=== PATIENT | female | born 1980 | race Caucasian/White ===

== ENCOUNTER → 2016-11-30 | Outpatient (CLI) | payer BC ==
[~2016-11-30] MED LIST: CALC-51 PO; IBUP-1050 PO; THY/30 PO; vitamin d PO
--- NOTE | 2016-11-30 16:30 | MAMMOGRAPHY REPORT ---
BILATERAL DIGITAL SCREENING MAMMOGRAM TOMOSYNTHESIS WITH CAD: 11/30/2016 CLINICAL HISTORY: Routine screening. Patient has no complaints. TECHNIQUE: Breast tomosynthesis in addition to standard 2D mammography was performed. Current study was also evaluated with a Computer Aided Detection (CAD) system. COMPARISON: Comparison is made to exam dated: 09/22/2015 mammogram - [facility]. BREAST COMPOSITION: The tissue of both breasts is heterogeneously dense, which may obscure small ma sses. FINDINGS: No suspicious masses, calcifications, or areas of architectural distortion are noted in e ither breast. There has been no significant interval change compared to prior exams. IMPRESSION: ACR BI-RADS CATEGORY 1: NEGATIVE There is no mammographic evidence of malignancy. A 1 year screening mammogram is recommended. The p atient will receive written notification of the results. Approximately 10% of breast cancers are not detected with mammography. A negative mammographic repor t should not delay biopsy if a clinically suggestive mass is present. Moon Perez M.D. ah/:11/30/2016 14:59:38 Coordinator Of Health Services: Noreen VAZQUEZ(Sahra)(Chandan)([place]), [facility] letter sent: Normal 1/2 BI-RADS Code: ACR BI-RADS Category 1: Negative
== END | disposition home or self-care (01) ==
LOC: C.MAMM 14:39
PROVIDERS: ATTEND Obstetrics & Gynecology
DX: Z12.31 Encounter for screening mammogram for malignant neoplasm of breast (principal)

== ENCOUNTER → 2016-12-12 | Outpatient (CLI) | payer BC ==
[2016-12-12 09:49] LABS: CALCULATED INSULIN SENSITIVITY 0.384; GLUCOSE LOG 1.9685; INSULIN FASTING 4.3 mU/L (3-25); INSULIN LOG 0.6335
== END | disposition home or self-care (01) ==
LOC: C.LAB1850 08:05
PROVIDERS: ATTEND Obstetrics & Gynecology
DX: R63.5 Abnormal weight gain (principal)

== ENCOUNTER → 2016-12-18 | Day surgery (SDC) | payer BC ==
--- NOTE | 2016-12-12 09:09 | PAT Medication Instructions ---
Service Date December 12, 2016. Current Home Medication List Ibuprofen (Advil), 800 MG PO PRN Thyroid ([place] Thyroid), 1 TAB PO QAM Medication Instructions For Your Scheduled Surgery - Check with surgeon for surgeon for instructions; Ibuprofen (Advil), 800 MG PO PRN - Take the following medications the morning of surgery with a sip of water: Thyroid ([place] Thyroid), 1 TAB PO QAM If you have any questions please call us at [phone] or [phone] or [phone]
[2016-12-12 09:33] LABS: BASO % 0.1 %; BASO ABS # 0.01 K/uL (0-0.2); COMPLETE YES; EOS % 1.6 %; HEMATOCRIT 39.6 % (37-47); IG% 0.1 %; LYMPH % 29.5 %; LYMPH ABS # 2.18 K/uL (1.2-3.4); MEAN CELL VOLUME 92.3 fL (80-100); MEAN CORPUSCULAR HGB CONC 33.6 g/dl (32-36); MEAN PLATELET VOLUME 9.9 fL (7.4-10.4); NEUT % 61.7 %; PLATELET COUNT 228 K/uL (130-400); RED BLOOD COUNT 4.29 M/uL (4.2-5.4)
[2016-12-12 09:54] LABS: INR 0.9 (0.9-1.1); PARTIAL THROMBOPLASTIN RATIO 1.2; PROTHROMBIN TIME (PATIENT) 9.9 SECONDS (9.0-12.0)
--- NOTE | 2016-12-17 11:11 | HISTORY & PHYSICAL EXAMINATION ---
DATE OF ADMISSION: 12/18/2016 HISTORY OF PRESENT ILLNESS: A 36-year-old female who presents for preop evaluation, requesting surgery due to pain located in the right foot over the lateral aspect of her foot and for correction of a shortened toe. She describes sharp stabbing tenderness graded as an 8 or 9 on a 10 point scale at its worst. She has had daily pain graded as a 5 or 6 although, notes it increases during periods of activity. The pain first started a year ago. 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 However, pain over the fifth metatarsal just started within the past year. She notes the severity of the condition is gradually worsening over time. Associated signs and symptoms she notes pressure when ambulating in certain shoes. Previous treatment has included accommodative shoes, nonsteroidals, accommodative padding, insoles. She has also been seen as a child at [facility] for the shortening deformity, upper fourth toe. Due to cosmetic reasons and increasing pain she is requesting surgical intervention at this time. PAST SURGICAL HISTORY: Tubal ligation in 2001, lithotripsy in 2008 and 2007. PAST MEDICAL HISTORY: Unremarkable. MEDICATIONS: Clinoril, Percocet, Keflex. ALLERGIES: LATEX. FAMILY HISTORY: Unremarkable. SOCIAL HISTORY: The patient admits to alcohol use. She is currently not smoking. Relates a smoking history of 15 pack years, quit 9 months ago. REVIEW OF SYSTEMS: Unremarkable except chief complaint. PHYSICAL EXAMINATION: CONSTITUTIONAL: The patient appears well-developed and nourished with good attention to body grooming and habitus. HEAD AND FACE: Head is normocephalic and atraumatic without any gross head, face, or neck masses. EYES: Conjunctival and pupillary reaction to light and accommodation normal. EARS, NOSE, MOUTH, AND THROAT: Unremarkable. NECK: Neck is supple. Trachea is midline. CARDIOVASCULAR: Normal S1, S2 without murmur, gallops, rubs, or clicks noted. RESPIRATORY: Chest is symmetric. No scars are visible. No port or pacemaker is noted. GASTROINTESTINAL: Abdominal organs, bladder, and kidneys show no abnormalities, masses, tenderness, or rigidity. LOWER EXTREMITIES: DP palpable. PT palpable. DERMATOLOGIC: No skin rash, subcutaneous nodules, lesions, or ulcers observed. NEUROLOGICAL: Touch, pin, vibratory pain, proprioception sensations are normal. Epicritic sensations intact. Deep tendon reflexes normal. MUSCULOSKELETAL: Muscle tone is normal. Muscle strength 5/5 all groups tested. Inspection and palpation of bones, joints, muscles shows first metatarsophalangeal joint, enlarged dorsal medial eminence. Range of motion is track bound and range of motion is limited secondary to swelling on the left, enlarged dorsal lateral prominence right fifth MTPJ. PIPJ contracture now with retrograde buckling across the metatarsophalangeal joint, brachymetatarsia is noted with shortening of the fourth toe, tenderness on palpation fifth MTPJ. Gait analysis shows excessive pronation. IMPRESSION: 1. Hallux abductovalgus deformity. 2. Hammertoe. 3. Brachymetatarsia. 4. Tailor's bunion. 5. Difficulty walking. 6. Pain in lower extremities. 7. Collapsing calcaneal valgus foot type. PLAN: I discussed mechanical and congenital etiology of the patient's deformity. Conservative treatment consisting of: 1. Extra depth shoes, accommodative padding, palliative debridement, steroid injection, nonsteroidals, orthotics. Due to pain over the fifth MTPJ she is requesting surgical correction of the Tailor's bunion. 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 Surgical procedures to be performed: 1. Metatarsal osteotomy with exostectomy, right fifth MTPJ. 2. Osteotomy, right fourth metatarsal. 3. Application of external bone fixator right foot for the purpose of lengthening metatarsal. 4. PIPJ arthroplasty with pinning right fourth. 5. Capsulotomy, right fourth and fifth MTPJ. This will be performed under general anesthesia as an outpatient at the hospital. The procedure, risks and complications were fully reviewed with the patient. Consent form and foot diagram and illustration reviewed in all their entirety. All the patient's questions were answered. Complications were discussed in detail with the patient including pain, infection, swelling that may or may not be excessive, pins and needles feeling, numbness, metatarsalgia, excessive bleeding, delay or nonhealing bone, delay or nonhealing of skin, enlarged scar, failure of the procedure, recurrence or worsening of condition which may or may not require further surgery, adverse reaction to anesthesia, allergic reaction to suture or other implant material, loss of toe, foot, or leg, flail toe, stiff toe, short toe, elevated toe, transfer lesion or callus, peripheral neurovascular complications such as phlebitis, damage to nerves or vascular structures, severe or chronic pain, chronic nerve pain or damage, and general medical complications. The patient will be required to be in a surgery shoe for a minimum of 6-8 weeks and not return to dress shoe for 10-12 weeks depending on the postop edema. The patient is aware this is an elective type procedure and I recommended a second opinion. The patient stated they understood. Consent form was signed with a copy of the foot diagram issued to the patient. Verbal and written postop instructions were given. The patient will be required to be in a surgery shoe for a minimum of 6-8 weeks and not return to dress shoe for 10-12 weeks depending on the postop edema. The patient will return to the office for postop check or sooner if medically necessary. Instructed to keep dressing clean, dry and intact until seen at the office. At time of the preoperative appointment, prescriptions for Percocet and Keflex were dispensed.
[~2016-12-18] VITALS: Ht 157.5 cm; Wt 74.6 kg
[~2016-12-18] MED LIST changes: +ATROPINE SULFATE 0.1 MG/ML 5ML SYR IV PRN; +BUPIVACAINE 0.5 % 5 MG/1 ML MPF 30ML VIAL ONE; +BUPIVACAINE 0.5 % 5 MG/1 ML PF 10ML VIAL ONE; +CEFAZOLIN 1000MG/55 ML D5W IV SCH; +CEFAZOLIN SOD 1 GM VIAL ONE; +DEXAMETHASONE SOD INJ 4 MG/ML VIAL ONE; +DiphenhydrAMINE HCL 50 MG/ML VIAL ONE; +FENTANYL CITRATE INJ 50 MCG/1 ML 2 ML VIAL ONE; +HYDROmorphone INJ 2 MG/ML SYR/VIAL IV PRN; +KETOROLAC TROMETHAMINE 30 MG/ML VIAL IV. PRN; +LACTATED RINGER'S 1000ML 1,000 ML IV SCH; +LIDOCAINE HCL 2% 2 ML VIAL (20MG/ML) ONE; +MIDAZOLAM HCL 1 MG/ML 2ML VIAL ONE; +ONDANSETRON INJ 2 MG/ML 2 ML VIAL IV PRN; +ONDANSETRON INJ 2 MG/ML 2 ML VIAL ONE; +PROMETHAZINE HCL INJ 6.25 MG in SODIUM CHLORIDE 0.9% 50ML 50 ML IV PRN; +PROPOFOL IV EMULSION 10 MG/ML 20 ML VIAL IV ONE; +SODIUM CHLORIDE 0.9% 1000ML 1,000 ML IV SCH
[2016-12-18 05:53] VITALS: BP 113/65; PULSE 72; TEMP 36.7; O2SAT 97; Ht 157.5 cm; Wt 74.6 kg
--- NOTE | 2016-12-18 07:08 | History & Physical Bridge - SC ---
H&P Re-Evaluation Bridge Note: I have examined the patient, reviewed the History & Physical and in the interval since the performance of the History & Physical I have noted the following changes of clinical significance: No changes noted
--- NOTE | 2016-12-18 07:11 | Discharge Instructions ---
Discharge Instructions Date of Service Dec 18, 2016. Visit Reason for Visit: Brachymetatarsal Right 4th Tailors Bunion Discharge Discharge Diagnosis / Problem: same as above Discharge Goals Goal(s): Decrease discomfort Activity Recommendations Activity Limitations: as noted below Medications: * Resume previous medications unless instructed by your surgeon. * Take your medications as prescribed. Call our office ([phone]) at any time, if you experience severe pain that does not subside shortly after taking your pain medication. Activity: * Do not put any standing weight on your operated foot/ankle. Use the crutches or walker as instructed. Special Care: * Keep your bandage clean and dry. Do not remove your bandage unless otherwise instructed. A small amount of blood may appear on the bandage over the surgical site. Call our office ([phone]) if you bandage becomes blood-soaked or wet. * Elevate your operated foot/ankle on pillows, above the level of your heart, as often as possible during the first 2-3 days following surgery. Keep your knee flexed slightly with a pillow under your knee when you elevate your foot/ankle. * Apply a ice bag to your foot/ankle over the operative site for 20-30 minutes out of each hour while you are awake. Do not allow the ice bag to directly contact bare skin. * Avoid bumping or handling any pins visible in your toes. If any pin feels or appears loose, call the office ([phone]). * Take your oral temperature in the morning and at bedtime. Call our office ([phone]) if your temperature rises above 101 degrees Fahrenheit. Call your surgeon's office at ([phone]) for any problems or concerns such as excessive bleeding and/or pain unrelieved by your prescribed pain medications. If you have any questions, please do not hesitate to ask them. Avoid all tobacco products. If you need help to stop smoking, call [place]'s FREE QUITLINE at . This is a free call. Follow-up: Follow-up with Dr. Roque Anesthesia . Post Anesthesia Instructions: If you have had General Anesthesia or IV Sedation: * Do not drive today. * Resume driving when surgeon permits. * Do not make important decisions or sign legal documents today. * Call surgeon for: 1. Temperature elevations greater than 101 degrees F. 2. Uncontrollable pain. 3. Excessive bleeding. 4. Persistent nausea and vomiting. 5. Medication intolerance (nausea, vomiting or rash). * For nausea and vomiting use only clear liquids such as: tea, soda, bouillon until nausea subsides, then gradually increase diet as tolerated. * If you have any concerns or questions, call your surgeon's office. If physician is unavailable and it is an emergency, call 911 or go to the nearest emergency room. . Diet Recommendations Recommended Home Diet: resume previous diet Pending Studies Studies pending at discharge: no Medical Emergencies . Who to Call and When: Medical Emergencies: If at any time you feel your situation is an emergency, please call 911 immediately. . Non-Emergent Contact Non-Emergency issues call your: Primary Care Provider . . "Provider Documentation" section prepared by Michell Durán. .
--- NOTE | 2016-12-18 10:45 | DIAGNOSTIC IMAGING REPORT ---
INTRAOPERATIVE RIGHT FOOT 3 VIEWS CLINICAL HISTORY: Right fourth metatarsal osteotomy COMPARISON STUDY: No previous studies for comparison. FINDINGS: 3 intraoperative fluoroscopic spot images are provided for interpretation. 69 seconds of fluoroscopic time was utilized. There is a short fourth metatarsal. There is an orthopedic pin traversing the interphalangeal joints of the fourth digit as well as the fourth metatarsal phalangeal joint. There are 2 pins within the distal fourth metatarsal, 2 pins within the proximal fourth metatarsal. There are 2 screws within the distal fifth metatarsal. IMPRESSION: Intraoperative radiographs with postsurgical changes as described above. Electronically signed by: Nilson Rawls M.D. 12/18/2016 10:44 AM Dictated Date/Time: 12/18/2016 10:42 AM
--- NOTE | 2016-12-18 11:49 | OPERATIVE REPORT ---
DATE OF OPERATION: 12/18/2016 PREOPERATIVE DIAGNOSES: 1. Brachial metatarsal tear, right fourth. 2. Hammertoes, right fourth. 3. Tailor's bunion, right fifth. POSTOPERATIVE DIAGNOSES: Same. PROCEDURES: 1. Exostectomy with osteotomy, right fifth metatarsal. 2. PIPJ arthroplasty with capsulotomy, right fourth. 3. Capsulotomy, right fifth MTPJ. 4. Metatarsal osteotomy, right fourth. 5. ZY-plasty lengthening skin plasty. 6. Z-plasty lengthening extensor hallucis longus. 7. External fixator application for lengthening right fourth metatarsal unilateral multiplanar. SURGEON: Dr. Roque. PANTS BUSHELER: None. ANESTHESIA: General with regional field block. HEMOSTASIS: Pneumatic calf tourniquet inflated to a level of 300 mmHg for a total tourniquet time 120 minutes, deflated for 20 minutes and reinflated for 30 minutes. ESTIMATED BLOOD LOSS: 10 mL. MATERIALS: 1.5 screws x2 from modular handset measuring 10 mm and 12 mm, mini fixator from [employer] 2.0 threaded K-wires x4, 2-0, 3-0 Vicryl, 4-0 nylon, 0 Ethibond. COMPLICATIONS: None. CONDITION: The patient tolerated the procedure and anesthesia well without complications, transferred to recovery room with vital signs stable and neurovascular status intact. OPERATION AND FINDINGS: PROCEDURE: The patient was brought to the OR and placed on the OR table in supine position. Upon completion of general anesthesia regional field block the right extremity was scrubbed, prepped and draped in the usual aseptic fashion. A well-padded calf tourniquet was applied to the right lower extremity. The extremity was scrubbed, prepped and draped in the usual aseptic fashion. Attention was directed to the right fifth MTPJ where a linear incision was made over the joint with care to preserve all neurovascular structures. Dissection was carried down to the level of the capsular structures. A linear capsulotomy was created which revealed an enlarged dorsal lateral prominence of bone along the fifth metatarsal head. This was removed using a sagittal saw. A guidewire was placed over the neck of the fifth metatarsal in order to slightly plantarflex the metatarsal head. The osteotomy cuts in reverse Corky fashion were made from dorsal medial to plantar proximal lateral. Capital fragment was transposed in a medial direction and temporarily fixated with 1.3 K-wires, 2 screws from the modular handset were placed in lag fashion across the osteotomy site parallel to each other. Intraoperative positioning was checked using C-arm. Attention was then directed to the 4th digit. ZY-plasty was made over the base of the fourth digit to lengthen soft tissue contracture over this area. Capsulotomy was performed over the fourth with release of the metatarsophalangeal joint contracture. Proximal interphalangeal joint was released. A 0.045 K-wire was retrograded through the toe to hold this in position. Attention was then directed to the fourth metatarsal where 4 guided threaded wires were placed, 2 proximal, 2 distal in the fourth metatarsal. An oblique osteotomy was created after application of the external fixator then tightened. This was distracted approximately 3 mm and left in place. Pneumatic ankle tourniquet was released with normal hyperemic ely to digits 1 through 5. Closure began of the skin margins, deep 2.0, subq 3.0 vicral and 4.0 nylon over the skin. Dry sterile compressive dressing consisting of Betadine over the pin sites, 4 x 4's, Adaptic, ABDs, Kerlix and a well-padded BK splint. The patient was transported to recovery room with vital signs stable and neurovascular status intact. I attest to the content of the Intraoperative Record and any orders documented therein. Any exceptions are noted below. DILEEPD
[2016-12-18 12:25] VITALS: BP 107/65; PULSE 75; TEMP 36.9; O2SAT 100
--- NOTE | 2016-12-18 12:36 | DIAGNOSTIC IMAGING REPORT ---
RIGHT FOOT MIN 3 VIEWS ROUTINE CLINICAL HISTORY: postop Right COMPARISON: None. DISCUSSION: Anatomically short fourth metatarsal. Linear pin traversing the phalanges of the fourth toe. Pin fixation of the fourth metatarsal with an external fixator. Findings of a distal fifth metatarsal osteotomy. Expected soft tissue postoperative change IMPRESSION: Postoperative changes to the fourth and to lesser extent fifth metatarsophalangeal complex with alignment considered anatomic. Electronically signed by: Zeke Ngo M.D. 12/18/2016 12:35 PM Dictated Date/Time: 12/18/2016 12:33 PM
--- NOTE | 2016-12-18 12:37 | Anesthesiology Progress Note ---
Anesthesia Post Op Note Date & Time Dec 18, 2016 at 12:37 Vital Signs Pain Intensity: 0 Vital Signs Past 12 Hours Date Time Temp Pulse Resp B/P (MAP) Pulse Ox O2 Delivery O2 Flow Rate FiO2 12/18/16 12:15 60 18 109/76 97 Room Air 12/18/16 12:05 36.5 80 16 111/76 97 Room Air 12/18/16 11:55 67 12 134/87 97 Room Air 12/18/16 11:45 68 18 114/71 95 Room Air 12/18/16 11:35 72 20 117/71 96 Room Air 12/18/16 11:25 70 23 122/72 100 Mask 10 12/18/16 11:15 70 18 121/72 100 Mask 10 12/18/16 11:07 36.7 79 16 125/77 100 Mask 10 12/18/16 05:53 36.7 72 20 113/65 (81) 97 Room Air Notes Mental Status: alert / awake / arousable, participated in evaluation Pt Amnestic to Procedure: Yes Nausea / Vomiting: adequately controlled Pain: adequately controlled Airway Patency, RR, SpO2: stable & adequate BP & HR: stable & adequate Hydration State: stable & adequate Anesthetic Complications: no major complications apparent
[2016-12-18 12:54] VITALS: BP 114/65; PULSE 68; O2SAT 99
[2016-12-18 13:25] VITALS: BP 113/71; PULSE 63; TEMP 36.8; O2SAT 99
== END | disposition home or self-care (01) ==
LOC: C.ACU 05:28
PROVIDERS: ATTEND Podiatrist Foot & Ankle Surgery
DX: M20.41 Other hammer toe(s) (acquired), right foot (principal); M21.621 Bunionette of right foot; Z87.891 Personal history of nicotine dependence

== ENCOUNTER → 2017-02-26 | Day surgery (SDC) | payer BC ==
--- NOTE | 2017-02-25 11:05 | HISTORY & PHYSICAL EXAMINATION ---
DATE OF ADMISSION: 02/26/2017 HISTORY OF PRESENT ILLNESS: This 36-year-old female presents status post lengthening with external fixator. She has been recovering well. She has obtained 1.5 cm of length. One of the screws is bent due to the force on the external fixator. She notes that she has been nonweightbearing. She also notes mild prominence with swelling plantarly. Denies fevers, chills and night sweats. Overall recovery has been uneventful. PAST SURGICAL HISTORY: Foot surgery in 2016, foot repair, tubal ligation in 2001, and lithotripsy in 2008. PAST MEDICAL HISTORY: Unremarkable. MEDICATIONS: None. ALLERGIES: LATEX. FAMILY HISTORY: Unremarkable. SOCIAL HISTORY: The patient admits to tobacco use. She is currently not smoking. Relates a smoking history of 15 pack years, quit approximately 1 year ago. REVIEW OF SYSTEMS: Unremarkable except chief complaint. PHYSICAL EXAMINATION: CONSTITUTIONAL: The patient appears well-developed and nourished with good attention to body grooming and habitus. HEAD AND FACE: Head is normocephalic and atraumatic without any gross head, face, or neck masses. EYES: Conjunctival and pupillary reaction to light and accommodation normal. EARS, NOSE, MOUTH, AND THROAT: Unremarkable. NECK: Neck is supple. CARDIOVASCULAR: Normal S1 and S2 without murmur, gallops, rubs noted. RESPIRATORY: Chest is symmetric. No scars are visible. No port or pacemaker. LUNGS: Clear to auscultation bilaterally and equal. GASTROINTESTINAL: Abdominal organs, bladder, and kidneys show no abnormalities, masses, tenderness, or rigidity. LOWER EXTREMITY EXAMINATION: DP palpable. PT palpable. Postoperative site shows moderate edema, improved. Good cap refill noted at fourth and fifth digits, right foot. DERMATOLOGIC: Skin sites are clean. Pin sites are clean. The fixation externally looks intact and straight. "X-ray shows more proximal pin bent on the x-ray". No plantar prominence noted. NEUROLOGICAL: Touch, pin, vibratory and proprioception sensations are normal. MUSCULOSKELETAL: Good alignment to the fourth and fifth digits. Brachymetatarsia has resolved with the external fixator in place with the parabola in toes and normal with 1.5 cm of lengthening per the x-ray. IMPRESSION: Status post Tailor's bunionectomy, hammertoe repair left fourth, and brachymetatarsia repair of right fourth on 12/18/2016. PLAN: Surgical procedures to be performed for adjustment of external fixator, right foot, possible placement of bent pin and this will be performed under IV with local sedation and/or straight local depending on how the patient tolerating the procedure. Risks and complications were fully reviewed. Consent form, foot diagram and illustration were reviewed in all there entirety, questions were answered and complications were discussed in detail with the patient including pain, infection, swelling that may or may not be excessive, pins and needles feeling, numbness, metatarsalgia, excessive bleeding, delay or nonhealing of bone, delay or nonhealing of skin, enlarged scar, failure of the procedure, recurrence or worsening of condition. She is aware of the increased risk of the external fixator. The patient will be in a surgery shoe, nonweightbearing immediately postoperatively. Verbal and written postop instructions were given to the patient. The patient will return to the office for postop check or sooner if medically necessary. MANDY
[~2017-02-26] VITALS: Ht 157.5 cm; Wt 75.0 kg
[~2017-02-26] MED LIST changes: -CEFAZOLIN 1000MG/55 ML D5W IV SCH; -CEFAZOLIN SOD 1 GM VIAL ONE; +CLONIDINE HCL 100 MCG/ML SYRINGE ONE; -DEXAMETHASONE SOD INJ 4 MG/ML VIAL ONE; -DiphenhydrAMINE HCL 50 MG/ML VIAL ONE; +EpHEDrine SULFATE INJ 50 MG/ML AMP IV PRN; +FLUMAZENIL 0.1 MG/1 ML 10 ML VIAL IV PRN; +HYDROmorphone INJ 1 MG/ML SYR IV PRN; +HYDROmorphone INJ 1 MG/ML SYR ONE; -HYDROmorphone INJ 2 MG/ML SYR/VIAL IV PRN; -IBUP-1050 PO; -KETOROLAC TROMETHAMINE 30 MG/ML VIAL IV. PRN; +LABETALOL HCL IV 5 MG/ML 20ML IV PRN; +MEPIVACAINE HCL 1.5% 30 ML VIAL ONE; +NALOXONE HCL 0.4 MG/1 ML VIAL/CARP IV PRN; +NURSING VERBAL MED ORDER ONE; +OXYCODONE/ACETAMINOPHEN 5-325 TAB ONE; +PROMETHAZINE HCL INJ 12.5 MG in SODIUM CHLORIDE 0.9% 50ML 50 ML IV PRN; -PROMETHAZINE HCL INJ 6.25 MG in SODIUM CHLORIDE 0.9% 50ML 50 ML IV PRN
[2017-02-26 06:55] VITALS: BP 115/71; PULSE 65; TEMP 36.9; O2SAT 99; Ht 157.5 cm; Wt 75.0 kg
--- NOTE | 2017-02-26 07:17 | Discharge Instructions ---
Discharge Instructions Date of Service Feb 26, 2017. Admission Reason for Admission: Brachyametatarsia Right 4TH Discharge Discharge Diagnosis / Problem: same as above Discharge Goals Goal(s): Therapeutic intervention Activity Recommendations Activity Limitations: as noted below Medications: * Resume previous medications unless instructed by your surgeon. * Take your medications as prescribed. Call our office ([phone]) at any time, if you experience severe pain that does not subside shortly after taking your pain medication. Activity: * Do not put any standing weight on your operated foot/ankle. Use the crutches or walker as instructed. Special Care: * Keep your bandage clean and dry. Do not remove your bandage unless otherwise instructed. A small amount of blood may appear on the bandage over the surgical site. Call our office ([phone]) if you bandage becomes blood-soaked or wet. * Elevate your operated foot/ankle on pillows, above the level of your heart, as often as possible during the first 2-3 days following surgery. Keep your knee flexed slightly with a pillow under your knee when you elevate your foot/ankle. * Apply a ice bag to your foot/ankle over the operative site for 20-30 minutes out of each hour while you are awake. Do not allow the ice bag to directly contact bare skin. * Avoid bumping or handling any pins visible in your toes. If any pin feels or appears loose, call the office ([phone]). * Take your oral temperature in the morning and at bedtime. Call our office ([phone]) if your temperature rises above 101 degrees Fahrenheit. Call your surgeon's office at ([phone]) for any problems or concerns such as excessive bleeding and/or pain unrelieved by your prescribed pain medications. If you have any questions, please do not hesitate to ask them. Avoid all tobacco products. If you need help to stop smoking, call [place]'s FREE QUITLINE at . This is a free call. Follow-up: Follow-up with Dr. Roque . Current Hospital Diet Patient's current hospital diet: Discharge Diet Recommended Diet: Regular Diet Pending Studies Studies pending at discharge: no Medical Emergencies . Who to Call and When: Medical Emergencies: If at any time you feel your situation is an emergency, please call 911 immediately. . Non-Emergent Contact Non-Emergency issues call your: Primary Care Provider . "Provider Documentation" section prepared by Michell Durán. . VTE Core Measure Inpt VTE Proph given/why not?: Treatment not indicated
--- NOTE | 2017-02-26 10:55 | DIAGNOSTIC IMAGING REPORT ---
RIGHT FOOT MIN 3 VIEWS ROUTINE CLINICAL HISTORY: 36 years-old Female presenting with RT EX-FIX ADJUSTMENT Right. TECHNIQUE: 3 fluoroscopic spot image(s) obtained as part of intraoperative procedure. COMPARISON: Plain radiographs of the right foot from 12/18/2016. FINDINGS/IMPRESSION: External fixation of the fourth metatarsal removed and replaced with external fixation of the third metatarsal. 2 screw fixation of the neck of the fifth metatarsal noted. The fourth metatarsals poorly visualized due to overlapping hardware. Please see surgical report for further details. Fluoroscopy dosage (mGy): Not available. Fluoroscopy time: 14 seconds. Number of fluoroscopic spot images: 3. Electronically signed by: Xander Hayes M.D. 02/26/2017 10:53 AM Dictated Date/Time: 02/26/2017 10:51 AM
--- NOTE | 2017-02-26 10:55 | OPERATIVE REPORT ---
DATE OF OPERATION: 02/26/2017 SURGEON: Dr. Roque. 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 POSTOPERATIVE DIAGNOSES: Same. PROCEDURE: Adjustment of external fixator, right foot. ANESTHESIA: Sedation. HEMOSTASIS: None. ESTIMATED BLOOD LOSS: Minimal. MATERIALS: None. INJECTIONS: None. COMPLICATIONS: None. DESCRIPTION OF PROCEDURE: The patient was brought to the OR. Upon completion of sedation by the anesthesia department, the external fixator was loosened and readjusted. The more proximal pin that appeared bent after the adjustment and backing out was under less tension and there was no reason to replace the pin. The pins were tightened and the external fixator was tightened. A dry sterile dressing consisting of Adaptic, 4 x 4's, Kerlix and an Fabiano was applied. Good stability of the external fixator was noted. There were no complications throughout the procedure. I attest to the content of the Intraoperative Record and any orders documented therein. Any exception s are noted below.
--- NOTE | 2017-02-26 10:59 | Anesthesiology Progress Note ---
Anesthesia Post Op Note Date & Time Feb 26, 2017 at 10:59 Vital Signs Pain Intensity: 0 Vital Signs Past 12 Hours Date Time Temp Pulse Resp B/P (MAP) Pulse Ox O2 Delivery O2 Flow Rate FiO2 02/26/17 10:50 36.7 53 16 103/55 97 Room Air 02/26/17 10:40 65 16 107/71 99 Room Air 02/26/17 10:30 61 16 115/64 95 Room Air 02/26/17 10:20 36.6 76 16 102/67 100 Room Air 02/26/17 06:55 36.9 65 16 115/71 (86) 99 Room Air Notes Mental Status: alert / awake / arousable, participated in evaluation Pt Amnestic to Procedure: Yes Nausea / Vomiting: adequately controlled Pain: adequately controlled Airway Patency, RR, SpO2: stable & adequate BP & HR: stable & adequate Hydration State: stable & adequate Anesthetic Complications: no major complications apparent
[2017-02-26 11:05] VITALS: BP 102/68; PULSE 70; TEMP 37.2; O2SAT 99
[2017-02-26 12:25] VITALS: BP 119/74; PULSE 57; TEMP 37.2; O2SAT 99
== END | disposition home or self-care (01) ==
LOC: C.ACU 06:32
PROVIDERS: ATTEND Podiatrist Foot & Ankle Surgery
DX: Z46.89 Encounter for fitting and adjustment of other specified devices (principal); Z87.891 Personal history of nicotine dependence

== ENCOUNTER → 2017-05-23 | Outpatient (CLI) | payer BC ==
[~2017-05-23] MED LIST changes: -ATROPINE SULFATE 0.1 MG/ML 5ML SYR IV PRN; -BUPIVACAINE 0.5 % 5 MG/1 ML MPF 30ML VIAL ONE; -BUPIVACAINE 0.5 % 5 MG/1 ML PF 10ML VIAL ONE; -CLONIDINE HCL 100 MCG/ML SYRINGE ONE; -EpHEDrine SULFATE INJ 50 MG/ML AMP IV PRN; -FENTANYL CITRATE INJ 50 MCG/1 ML 2 ML VIAL ONE; -FLUMAZENIL 0.1 MG/1 ML 10 ML VIAL IV PRN; -HYDROmorphone INJ 1 MG/ML SYR IV PRN; -HYDROmorphone INJ 1 MG/ML SYR ONE; -LABETALOL HCL IV 5 MG/ML 20ML IV PRN; -LACTATED RINGER'S 1000ML 1,000 ML IV SCH; -LIDOCAINE HCL 2% 2 ML VIAL (20MG/ML) ONE; -MEPIVACAINE HCL 1.5% 30 ML VIAL ONE; -MIDAZOLAM HCL 1 MG/ML 2ML VIAL ONE; -NALOXONE HCL 0.4 MG/1 ML VIAL/CARP IV PRN; -NURSING VERBAL MED ORDER ONE; -ONDANSETRON INJ 2 MG/ML 2 ML VIAL IV PRN; -ONDANSETRON INJ 2 MG/ML 2 ML VIAL ONE; +OPTIRAY 320 IV PRN; -OXYCODONE/ACETAMINOPHEN 5-325 TAB ONE; -PROMETHAZINE HCL INJ 12.5 MG in SODIUM CHLORIDE 0.9% 50ML 50 ML IV PRN; -PROPOFOL IV EMULSION 10 MG/ML 20 ML VIAL IV ONE; -SODIUM CHLORIDE 0.9% 1000ML 1,000 ML IV SCH
--- NOTE | 2017-05-23 12:34 | DIAGNOSTIC IMAGING REPORT ---
LOWER EXTREMITY WITH CLINICAL HISTORY: EVAL RT FOOT HEALING-NEEDS RESULTS STAT TECHNIQUE: Transaxial acquisition with multi axial reformatted images COMPARISON STUDY: 02/26/2017 FINDINGS: 2 pins are identified overlying the distal aspect of the fifth metatarsal. Alignment appears anatomic. There appears to be complete healing. The fourth metatarsal shows evidence for an external fixator anchored to both the proximal as well as the distal aspect of the fourth metatarsal. There is discontinuity of the base of the fourth metatarsal with separation of fracture fragments of approximately 7 mm. Margins are generally well corticated. 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 The first through third metatarsals appear be intact. There is no significant callus formation. All remaining osseous structures appear to be generally intact. IMPRESSION: 1. External fixation of the fourth metatarsal at its base and distal aspect. 2. There is disruption of the linear length of the fourth metatarsal with separation of the proximal and distal aspect of the metatarsal x 7 mm. 3. The proximal and distal aspects of the metatarsal separation demonstrate sclerosis with the possibly of a developing nonunion considered 4. fixation distal aspect fifth metatarsal appearing to be completely healed. The above report was generated using voice recognition software. It may contain grammatical, syntax or spelling errors. Electronically signed by: Zeke Ngo M.D. 05/23/2017 12:33 PM Dictated Date/Time: 05/23/2017 12:19 PM
== END | disposition home or self-care (01) ==
LOC: C.CTS 11:13
PROVIDERS: ATTEND Podiatrist Foot & Ankle Surgery
DX: R26.2 Difficulty in walking, not elsewhere classified (principal); S92.341G Displaced fracture of fourth metatarsal bone, right foot, subsequent encounter for fracture with delayed healing; X58.XXXD Exposure to other specified factors, subsequent encounter; Z98.890 Other specified postprocedural states

== ENCOUNTER → 2017-07-11 | Outpatient (CLI) | payer BC ==
--- NOTE | 2017-07-11 13:44 | DIAGNOSTIC IMAGING REPORT ---
LOWER EXTREMITY WITH CLINICAL HISTORY: R LOWER LEG HEALING,COMPARE TO MAY 2017 CT interval healing. Hardware integrity. TECHNIQUE: Transaxial acquisition with multi axial reformatted images COMPARISON STUDY: 05/23/2017 FINDINGS: Study and partially is compromised by moderate patient motion. This is accentuated by increased metallic artifact due to the inherent patient motion. Nevertheless, the study is diagnostic. The external fixator and associated hardware is intact. It shows no evidence for change in alignment compared to the prior study. The ankle mortise is aligned appropriately. The pins traversing the fifth metatarsal are again aligned appropriately. Fracture present described has again healed completely. Fracture of the fourth metatarsal previously described as having and separation of 7 mm has improved in separation to a current dimension of 2.5 mm. The fracture and are again partially sclerotic although this is less prominent as compared to the prior exam. Fixating hardware appears to be intact with no change in alignment. All remaining osseous structures show no change compared to the prior exam. No additional acute bony anomaly is appreciated. IMPRESSION: 1. Compromised exam due to patient motion despite rescanning. 2. Nevertheless, the study is considered diagnostic. 3. The fixating hardware including alignment appears to be unremarkable with no change from the prior exam. 4. Fracture of the fifth metatarsal is again noted to be completely healed. 5. Fracture of the fourth metatarsal is improved in appearance with a decrease in separation of fracture fragments from 7 mm to 2.5 mm. This is improved. 6. The fracture ends continue to show a slight degree of sclerosis, although this appears to appears to be improved compared to the prior study. 7. The appearance of the fourth metatarsal suggests the possibility of early healing although no callus formation or periosteal reaction is noted at this time. 8. This study suggests an improving scenario of the fourth metatarsal fracture as compared to the prior exam The above report was generated using voice recognition software. It may contain grammatical, syntax or spelling errors. Electronically signed by: Zeke Ngo M.D. 07/11/2017 1:42 PM Dictated Date/Time: 07/11/2017 1:15 PM
== END | disposition home or self-care (01) ==
LOC: C.CTS 12:37
PROVIDERS: ATTEND Podiatrist Foot & Ankle Surgery
DX: S92.341D Displaced fracture of fourth metatarsal bone, right foot, subsequent encounter for fracture with routine healing (principal); R26.2 Difficulty in walking, not elsewhere classified; Z98.890 Other specified postprocedural states; Z87.39 Personal history of other diseases of the musculoskeletal system and connective tissue; X58.XXXD Exposure to other specified factors, subsequent encounter